=== PATIENT | male | born 1955 | race American Indian/Alaskan Native ===

== ENCOUNTER 2017-06-28 14:22 | Emergency (ER) | payer OTHER ==
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
--- NOTE | 2017-06-28 20:42 | XRay Report ---
FINAL REPORT EXAM: XR TIBIA FIBULA 2V LT HISTORY: pain TECHNIQUE: Three views left leg Comparison: None FINDINGS: Normal bony mineralization. No fracture or dislocation identified. Mild osteopenia. Arterial calcification. No radiopaque foreign body or soft tissue gas. IMPRESSION: No acute abnormality identified.
[2017-06-28 20:59] VITALS: BP 111/75
== END 2017-06-28 20:59 | disposition home or self-care (01) ==
LOC: ED 14:22
DX: J30.9 Allergic rhinitis, unspecified (principal); M79.605 Pain in left leg; I10 Essential (primary) hypertension; F17.200 Nicotine dependence, unspecified, uncomplicated

== ENCOUNTER 2017-08-19 11:31 | Emergency (ER) | payer OTHER ==
[2017-08-19 11:51] VITALS: BP 95/66
[2017-08-19] MEDS ORDERED: MOTRIN PO ONE (12:11)
[2017-08-19] MEDS ORDERED: ULTRAM PO ONE (12:11)
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
== END 2017-08-19 13:53 | disposition home or self-care (01) ==
LOC: ED 11:31
DX: M79.605 Pain in left leg (principal); I10 Essential (primary) hypertension; F17.200 Nicotine dependence, unspecified, uncomplicated

== ENCOUNTER 2018-11-10 09:14 | Emergency (ER) | payer OTHER ==
[2018-11-10] MEDS ORDERED: ASPIRIN 325 MG TAB PO ONE (09:45)
--- NOTE | 2018-11-10 10:08 | Emergency Department Report ---
ED General Adult HPI - General Chief complaint: Chest Pain Stated complaint: CHEST PAIN/VOMIT Time Seen by Provider: 11/10/18 09:59 Source: patient Mode of arrival: Ambulatory Limitations: No Limitations - History of Present Illness Initial comments: 63-year-old -Faro[place] male with a past medical history of hypertension currently on amlodipine presents to the emergency room reporting that he has chest pain and epigastric pain and vomiting. Patient states that he had 2 slices of pizza last night and then started vomiting sweating having diarrhea and nausea. Patient admits to chills. Patient last vomited at home. Complains of a slight headache on the sides of his head. Onset/Timin Location: abdomen Severity scale (0 -10): 8 - Related Data Previous Rx's Medication Instructions Recorded Last Taken Type Cetirizine HCl [Zyrtec] 10 mg PO DAILY #30 tablet 06/28/17 Unknown Rx Fluticasone [Flonase] 1 spray NS QDAY #1 bottle 06/28/17 Unknown Rx Ibuprofen [Motrin] 800 mg PO Q8HR PRN #30 tablet 06/28/17 Unknown Rx Ibuprofen [Motrin] 800 mg PO Q8HR PRN #20 tablet 08/19/17 Unknown Rx traMADol [Ultram] 50 mg PO Q6HR PRN #10 tablet 08/19/17 Unknown Rx Ondansetron [Zofran Odt] 4 mg PO Q8HR #12 tab.rapdis 11/10/18 Unknown Rx Allergies Allergy/AdvReac Type Severity Reaction Status Date / Time No Known Allergies Allergy Unverified 06/28/17 14:39 ED Review of Systems ROS: Stated complaint: CHEST PAIN/VOMIT Other details as noted in HPI ED Past Medical Hx - Past Medical History Previous Medical History?: Yes Hx Hypertension: Yes - Surgical History Past Surgical History?: Yes Additional Surgical History: Ortho surgeries. - Social History Smoking Status: Current Every Day Smoker Substance Use Type: Alcohol, Prescribed - Medications Home Medications: Home Medications Medication Instructions Recorded Confirmed Last Taken Type Cetirizine HCl [Zyrtec] 10 mg PO DAILY #30 tablet 06/28/17 Unknown Rx Fluticasone [Flonase] 1 spray NS QDAY #1 bottle 06/28/17 Unknown Rx Ibuprofen [Motrin] 800 mg PO Q8HR PRN #30 tablet 06/28/17 Unknown Rx Ibuprofen [Motrin] 800 mg PO Q8HR PRN #20 tablet 08/19/17 Unknown Rx traMADol [Ultram] 50 mg PO Q6HR PRN #10 tablet 08/19/17 Unknown Rx Ondansetron [Zofran Odt] 4 mg PO Q8HR #12 tab.rapdis 11/10/18 Unknown Rx ED Physical Exam - General Limitations: No Limitations General appearance: alert, in no apparent distress - Head Head exam: Present: atraumatic, normocephalic - Eye Eye exam: Present: normal appearance - ENT ENT exam: Present: mucous membranes moist - Neck Neck exam: Present: normal inspection - Respiratory Respiratory exam: Present: normal lung sounds bilaterally. Absent: respiratory distress - Cardiovascular Cardiovascular Exam: Present: regular rate, normal rhythm. Absent: systolic murmur, diastolic murmur, rubs, gallop - GI/Abdominal GI/Abdominal exam: Present: soft, tenderness (epigastric), normal bowel sounds. Absent: distended - Extremities Exam Extremities exam: Present: normal inspection, full ROM - Back Exam Back exam: Present: normal inspection - Neurological Exam Neurological exam: Present: alert, oriented X3 - Psychiatric Psychiatric exam: Present: normal affect, normal mood - Skin Skin exam: Present: warm, dry, intact, normal color. Absent: rash ED Course Vital Signs 11/10/18 09:33 Temperature 98 F Pulse Rate 68 Respiratory 18 Rate Blood Pressure 116/74 [Right] O2 Sat by Pulse 100 Oximetry - Reevaluation(s) Reevaluation #1: 11/10/18 14:38 By mouth challenge has begun ED Medical Decision Making - Lab Data Result diagrams: 11/10/18 10:06 11/10/18 10:06 - Medical Decision Making 63-year-old -Faroese male with a past medical history of hypertension currently on amlodipine presents to the emergency room reporting that he has chest pain and epigastric pain and vomiting. Patient states that he had 2 slices of pizza last night and then started vomiting sweating having diarrhea and nausea. Patient admits to chills. Patient last vomited at home. Complains of a slight headache on the sides of his head. Cardiac workup is been ordered. Patient was given Zofran for nausea and acetaminophen for pain management of headache. By mouth challenge has been started at 1435 [place] had 2 negative troponins and EKG normal except sinus bradycardia at 58 bpm. Critical care attestation.: If time is entered above; I have spent that time in minutes in the direct care of this critically ill patient, excluding procedure time. ED Disposition Clinical Impression: Nausea vomiting and diarrhea Disposition: DC-01 TO HOME OR SELFCARE Is pt being admited?: No Does the pt Need Aspirin: No Condition: Stable Instructions: Acute Nausea and Vomiting (ED), Abdominal Pain (ED) Additional Instructions: Take Zofran as needed for nausea and vomiting. Please increase her fluid intake and advance her diet as tolerated. I recommend free to follow-up at the [facility] in the next 3-5 days. Return back to the emergency room if worsening symptoms. Prescriptions: Ondansetron [Zofran Odt] 4 mg PO Q8HR #12 tab.rapdis Referrals: LUCY MARTIN MD [Primary Care Provider] - 3-5 Days Forms: Work/School Release Form(ED)
[2018-11-10] MEDS ORDERED: ONDANSETRON 4 MG ODT TAB PO ONE (10:10)
--- NOTE | 2018-11-10 10:28 | XRay Report ---
CHEST 1 VIEW 11/10/2018 9:51 AM INDICATION / CLINICAL INFORMATION: Chest Pain. COMPARISON: None available. FINDINGS: SUPPORT DEVICES: None. HEART / MEDIASTINUM: No significant abnormality. LUNGS / PLEURA: No significant pulmonary or pleural abnormality. No pneumothorax. ADDITIONAL FINDINGS: Posterior cervical fusion hardware cervicothoracic spine extending through T2 le kamala with cervical spine not fully included on [id number]. IMPRESSION: 1. No acute findings. Signer Name: Pete Blount MD Signed: 11/10/2018 10:24 AM Workstation Name: [id number]
[2018-11-10 10:37] LABS: Basophils % (Auto) 0.8 % (0.0-1.8); Eosinophils # (Auto) 0.1 K/mm3 (0.0-0.4); Eosinophils % (Auto) 1.6 % (0.0-4.3); Hematocrit 38.3 % (35.5-45.6); Hemoglobin 13.2 gm/dl (11.8-15.2); Lymphocytes # (Auto) 1.4 K/mm3 (1.2-5.4); Lymphocytes % (Auto) 27.5 % (13.4-35.0); Mean Corpuscular HGB Conc 35 % (32-34); Mean Corpuscular Volume 92 fl (84-94); Monocytes # (Auto) 0.5 K/mm3 (0.0-0.8); Monocytes % (Auto) 8.7 % (0.0-7.3); Platelet Count 193 K/mm3 (140-440); Red Blood Count 4.16 M/mm3 (3.65-5.03); Red Cell Distribution Width 14.1 % (13.2-15.2)
[2018-11-10 10:55] LABS: Alanine Aminotransferase 29 units/L (7-56); Albumin 4.1 g/dL (3.9-5); BUN/Creatinine Ratio 11; Blood Urea Nitrogen 9 mg/dL (9-20); Calcium 8.8 mg/dL (8.4-10.2); Hemolysis Index 3
[2018-11-10] MEDS ORDERED: ASPIRIN 325 MG TAB ONE (11:46)
[2018-11-10] MEDS ORDERED: ACETAMINOPHEN 325 MG TAB PO ONE (12:55)
[2018-11-10] MEDS ORDERED: ACETAMINOPHEN 325 MG TAB ONE (15:05)
[2018-11-10 15:09] VITALS: BP 119/68
== END 2018-11-10 19:41 | disposition home or self-care (01) ==
LOC: ED 09:14
DX: R11.2 Nausea with vomiting, unspecified (principal); R19.7 Diarrhea, unspecified; I10 Essential (primary) hypertension; F17.200 Nicotine dependence, unspecified, uncomplicated
CPT/HCPCS: 36415; 71045; 80053; 83690; 84484; 85025; 93005; 93010; Q0162